=== PATIENT | female | born 1975 | race African-American/Black ===

== ENCOUNTER 2017-07-21 07:40 | Emergency (ER) | payer MEDICARE, MEDICAID ==
[~2017-07-21] VITALS: Ht 162.6 cm; Wt 111.0 kg
[~2017-07-21 07:40] MED LIST: CLON-527 PO; CYCL-1 PO; HYDR-565 PO; ZOV200C PO; [UNRECOGNIZED DRUG - OTHER] TOP
[2017-07-21] MEDS ORDERED: IBUP-1986 PO (08:58)
[2017-07-21] MEDS ORDERED: DICL100G15 TOP (08:58)
[2017-07-21] MEDS ORDERED: CYCL-1 PO (08:58)
[2017-07-21] MEDS ORDERED: LIDO700A32 TOP (08:58)
[2017-07-21] MEDS ORDERED: ketorolac trometh. 30mg/ml inj. IM ONE (09:20)
[2017-07-21 09:48] VITALS: BP 115/65
== END 2017-07-21 09:49 | disposition home or self-care (01) ==
LOC: ER 07:40
DX: M43.6 Torticollis (principal); G89.29 Other chronic pain; Z79.899 Other long term (current) drug therapy
CPT/HCPCS: 96372; 99283; J1885

== ENCOUNTER 2019-07-25 08:55 | Emergency (ER) | payer MEDICARE, MEDICAID ==
[~2019-07-25] VITALS: Ht 162.6 cm; Wt 82.7 kg
[~2019-07-25 08:55] MED LIST changes: +DICL100G15 TOP; +GUAI1TBM19 PO; +HYDR-4353 PO; -HYDR-565 PO; +IBUP-1986 PO; +LIDO700A32 TOP; +ONDA4TAB12 PO
[2019-07-25 08:59] VITALS: BP 125/83
== END 2019-07-25 10:39 | disposition home or self-care (01) ==
LOC: ER 08:55
DX: S89.91XA Unspecified injury of right lower leg, initial encounter (principal); I10 Essential (primary) hypertension; G89.29 Other chronic pain; F17.200 Nicotine dependence, unspecified, uncomplicated; F12.90 Cannabis use, unspecified, uncomplicated; Z79.899 Other long term (current) drug therapy; X50.1XXA Overexertion from prolonged static or awkward postures, initial encounter; Y93.89 Activity, other specified; Y92.89 Other specified places as the place of occurrence of the external cause; Y99.9 Unspecified external cause status
CPT/HCPCS: 29505; 73560; 99283